=== PATIENT | male | born 1980 | race Hispanic/Latino ===

== ENCOUNTER 2017-07-11 12:43 | Emergency (ER) | payer SELFPAY ==
[2017-07-11 12:43] VITALS: BMI 26.2
[2017-07-11 12:52] VITALS: BP 151/88; PULSE 68; RESP 18; TEMP 97.1; O2SAT 98
[2017-07-11] MEDS ORDERED: Oxycodone/Acetaminophen 5/325 mg Tab PO STA (13:12)
--- NOTE | 2017-07-11 13:14 | ED PDOC ---
HPI: Dental Pain/Injury Time Seen by Provider: 07/11/17 12:59 Chief Complaint (Nursing): Dental Pain Chief Complaint (Provider): Dental pain x 2 hours History Per: Patient History/Exam Limitations: no limitations Onset/Duration Of Symptoms: Hrs Current Symptoms Are (Timing): Still Present Severity: Severe Pain Scale Rating Of: 10 Additional Complaint(s): Pt states he just broke the bottom left wisdom tooth at work. Pt states he took motrin but was in so much pain he came to the ER. PT takes oxycodone 30mg "sometimes" for knee pain. Pt has filled Rx for #120 tabs every month. No fever/ chills. Past Medical History Vital Signs: Last Vital Signs Temp 97.1 F L 07/11/17 12:50 Pulse 68 07/11/17 12:50 Resp 18 07/11/17 12:50 BP 151/88 H 07/11/17 12:50 Pulse Ox 98 07/11/17 12:50 - Medical History PMH: Fractures (right orbital, mandibal, nose), Migraine (head injury as a child ) Denies: Depression, Chronic Kidney Disease - Surgical History Surgical History: No Surg Hx - Family History Family History: States: No Known Family Hx - Home Medications Home Medications: Ambulatory Orders Medication Instructions Recorded Oxycodone HCl [Roxicodone] 30 mg PO TID #90 tab 09/14/15 Clindamycin [Cleocin] 300 mg PO Q6H #28 cap 04/01/16 Ibuprofen [Motrin Tab] 800 mg PO Q6H PRN #20 tab 07/11/17 Penicillin VK [Penicillin VK Tab] 500 mg PO BID 10 Days 07/11/17 - Allergies Allergies/Adverse Reactions: Allergies Allergy/AdvReac Type Severity Reaction Status Date / Time No Known Allergies Allergy Verified 03/30/16 16:23 Review of Systems ROS Statement: Except As Marked, All Systems Reviewed And Found Negative Constitutional: Negative for: Fever, Chills ENT: Positive for: Other (Dental pain ) Physical Exam - Reviewed Nursing Documentation Reviewed: Yes Vital Signs Reviewed: Yes - Physical Exam Appears: Positive for: Well, Non-toxic, No Acute Distress Head Exam: Positive for: ATRAUMATIC, NORMAL INSPECTION, NORMOCEPHALIC Skin: Positive for: Normal Color, Warm, DRY Eye Exam: Positive for: Normal appearance, Other ENT: Positive for: Normal ENT Inspection, Other (Dental decay lower right, no acute dental fracture seen ) Neck: Positive for: Normal, Painless ROM Cardiovascular/Chest: Positive for: Regular Rate, Rhythm Respiratory: Positive for: CNT, Normal Breath Sounds Back: Positive for: Normal Inspection Extremity: Positive for: Normal ROM. Negative for: Tenderness Neurologic/Psych: Positive for: Alert, Oriented - ECG O2 Sat by Pulse Oximetry: 98 Medical Decision Making Medical Decision Making: When offered percocet patient states "that isn't going to do anything for me". When patient told it was the strongest I would give in ER he said he would take it. Disposition - Clinical Impression Clinical Impression: Dental caries - Patient ED Disposition Is Patient to be Admitted: No Counseled Patient/Family Regarding: Diagnosis, Need For Followup - Disposition Disposition: Routine/Home Disposition Time: 13:16 Condition: GOOD Prescriptions: Ibuprofen [Motrin Tab] 800 mg PO Q6H PRN #20 tab PRN Reason: Pain Penicillin VK [Penicillin VK Tab] 500 mg PO BID 10 Days Instructions: Dental Caries (ED) Forms: [employer] (Fijian)
== END 2017-07-11 13:39 | disposition home or self-care (01) ==
LOC: H.ER 12:43
DX: K02.9 Dental caries, unspecified (principal)

== ENCOUNTER 2018-09-02 06:24 | Emergency (ER) | payer MEDICAID ==
[2018-09-02 06:25] VITALS: BMI 24.3
[2018-09-02] MEDS ORDERED: Sodium Chloride 0.9% 1,000 ML IV STA (07:19)
--- NOTE | 2018-09-02 07:53 | ED PDOC ---
HPI: Abdomen Time Seen by Provider: 09/02/18 07:11 Chief Complaint (Nursing): Abdominal Pain Chief Complaint (Provider): Abdominal Pain History Per: Patient History/Exam Limitations: no limitations Onset/Duration Of Symptoms: Days (x1 day ago), Worse Since (onset) Current Symptoms Are (Timing): Still Present Location Of Pain/Discomfort: RLQ Quality Of Discomfort: Sharp Associated Symptoms: Vomiting. denies: Fever, Diarrhea, Loss Of Appetite Additional Complaint(s): Demetri Arrieta is a 38 year old male with no past medical history, who presents to the emergency department complaining of having sharp right sided abdominal pain, associated with headaches and vomiting, onset x1 day ago. Patient states his pain has gotten worse since the onset. Patient denies hematuria, fever, diarrhea, or loss of appetite. He reports taking no medication for the pain. PMD: Candido Bryant Past Medical History Reviewed: Historical Data, Nursing Documentation, Vital Signs Vital Signs: Last Vital Signs Temp 98.6 F 09/02/18 07:12 Pulse 94 H 09/02/18 07:12 Resp 16 09/02/18 07:12 BP 125/63 09/02/18 07:12 Pulse Ox 97 09/02/18 07:12 - Medical History PMH: Fractures (right orbital, mandibal, nose), Migraine (head injury as a child) Denies: Depression, Chronic Kidney Disease - Surgical History Other surgeries: Knee surgeries bilaterally - Family History Family History: States: Unknown Family Hx - Home Medications Home Medications: Ambulatory Orders Medication Instructions Recorded Cephalexin [Keflex] 500 mg PO TID #21 capsule 06/21/18 traMADol [Ultram] 50 mg PO Q6 #9 tab 06/21/18 Ondansetron ODT [Zofran ODT] 4 mg PO Q6 PRN #10 odt 09/02/18 - Allergies Allergies/Adverse Reactions: Allergies Allergy/AdvReac Type Severity Reaction Status Date / Time No Known Allergies Allergy Verified 06/21/18 21:58 Review of Systems ROS Statement: Except As Marked, All Systems Reviewed And Found Negative Constitutional: Negative for: Fever Gastrointestinal: Positive for: Vomiting, Abdominal Pain. Negative for: Diarrhea Genitourinary Male: Negative for: Hematuria Neurological: Positive for: Headache Physical Exam - Reviewed Nursing Documentation Reviewed: Yes Vital Signs Reviewed: Yes - Physical Exam Appears: Positive for: Well, Non-toxic, No Acute Distress Head Exam: Positive for: ATRAUMATIC, NORMOCEPHALIC Skin: Positive for: Normal Color, Warm, Dry Eye Exam: Positive for: EOMI Neck: Positive for: Painless ROM Cardiovascular/Chest: Positive for: Regular Rate, Rhythm. Negative for: Murmur Respiratory: Positive for: Normal Breath Sounds. Negative for: Respiratory Distress Gastrointestinal/Abdominal: Positive for: Tenderness (RLQ, McBurney's point). Negative for: Guarding, Rebound Back: Positive for: Normal Inspection. Negative for: L CVA Tenderness, R CVA Tenderness, Vertebral Tenderness Extremity: Positive for: Normal ROM. Negative for: Tenderness, Pedal Edema, Deformity Neurologic/Psych: Positive for: Alert, Oriented (x3) - Laboratory Results Result Diagrams: 09/02/18 08:03 09/02/18 08:03 - ECG O2 Sat by Pulse Oximetry: 97 (RA) Pulse Ox Interpretation: Normal Medical Decision Making Medical Decision Making: Time:07:19 Impression: Appendicitis Initial Plan: --CMP --Lipase --CBC with differential --Urinalysis --Abd and pelvis CT with IV contrast Medications: --Toradol 15 mg IV --Sodium Chloride 1,000 ml IV labs reviewed WBC and LFTs normal Accession No. : [id number] Patient Name / ID : BORIS [id number] / [id number] Exam Date : 09/02/2018 09:17:56 ( Approved ) Study Comment : Sex / Age : M / [id number] Creator : Abimael Lugo MD Dictator : Abimael Lugo MD Database Administration Associate : Survey Worker : Abimael Lugo MD Approver2 : Report Date : 09/02/2018 10:14:29 My Comment : Date of service: 09/02/2018 PROCEDURE: CT Abdomen and Pelvis with contrast HISTORY: RLQ pain vomiting COMPARISON: None. TECHNIQUE: Following the intravenous administration of iodinated contrast material, a CT examination of the abdomen and pelvis performed from the domes of the diaphragms to the symphysis pubis with reformatted datasets provided in axial, sagittal and coronal planes. Oral contrast was not administered as per referring physician request. Coronal and sagittal reformats were generated. contrast dose: Omnipaque 300, 100 cc Radiation dose: Total exam DLP = 470.81 mGy-cm. This CT exam was performed using one or more of the following dose reduction tamiko hniques: Automated exposure control, adjustment of the mA and/or kV according to patient size, and/or use of iterative reconstruction technique. FINDINGS: LOWER THORAX: Trace bibasilar dependent atelectasis identified. LIVER: Unremarkable. No gross lesion or ductal dilatation. GALLBLADDER AND BILE DUCTS: Unremarkable. PANCREAS: Unremarkable. No gross lesion or ductal dilatation. SPLEEN: Unremarkable. ADRENALS: Unremarkable. No mass. KIDNEYS AND URETERS: Unremarkable. No hydronephrosis. No solid mass. VASCULATURE: Unremarkable. No aortic aneurysm. BOWEL: The stomach is distended with retained food and fluid limiting its evaluation. Evaluation of the gastrointestinal tract is limited due to the lack of oral contrast administration. Prominent retained fecal material is seen throughout the majority of large bowel suggestive of constipation. APPENDIX: Normal appendix. PERITONEUM: Unremarkable. No free fluid. No free air. LYMPH NODES: Unremarkable. No enlarged lymph nodes. BLADDER: Unremarkable. REPRODUCTIVE: Unremarkable. BONES: No acute fracture. OTHER FINDINGS: None. IMPRESSION: Normal appearing appendix. No measure edema, ascites or free intrarenal gas collection evident. Retained fecal material throughout the large bowel suggestive of constipation. ADDENDUM: On further review of the exam, small central mesenteric lymph nodes are identified with 2 medial to the cecum in a pattern may reflect mesenteric adenitis given several shotty lymph nodes in the central mesentery in concert with that finding. Further, a few thickened proximal small bowel loops in the left upper quadrant which may reflect limited enteritis as well. Findings discussed Dr. Mcdonald with written down and read back verification 09/02/2018 11:55 a.m.. [ Addendum Report Added by Abimael Lugo MD at 09/02/2018 11:55:45 ] D/w Dr Briceño radiologist, appendix appears normal\ Patient admitted to significant hunger and tolerated PO Re-eval patient abdomen mild tenderness LLQ and RLQ, no guarding or rebound. DC with specific instructions for return to ER for return, any worse or new pain. Scribe Attestation: Documented by Neftali Neves, acting as a scribe for Poncho Mcdonald III, DO. Provider Scribe Attestation: All medical record entries made by the Scribe were at my direction and personally dictated by me. I have reviewed the chart and agree that the record accurately reflects my personal performance of the history, physical exam, medical decision making, and the department course for this patient. I have also personally directed, reviewed, and agree with the discharge instructions and disposition. Disposition - Clinical Impression Clinical Impression: Abdominal pain, Vomiting - Patient ED Disposition Is Patient to be Admitted: No Counseled Patient/Family Regarding: Studies Performed, Diagnosis - Disposition Referrals: Jarrell Cheatham MD [Staff Provider] - Disposition: Routine/Home Disposition Time: 14:01 Condition: STABLE Additional Instructions: Drink plenty of fluids, avoid alcohol for one week, return to ER for any worse or new symptoms, pain, fever or any concern. Use zofran ODT every 4-6hrs as needed for nausea. Prescriptions: Ondansetron ODT [Zofran ODT] 4 mg PO Q6 PRN #10 odt PRN Reason: Nausea/Vomiting Instructions: Acute Abdomen (Belly Pain), Nausea and Vomiting, Adult (DC) Forms: [employer] (Icelandic)
[2018-09-02 08:16] LABS: BASO # 0.1 K/uL (0.0-0.2); EOS # 0.1 K/uL (0.0-0.7); HEMOGLOBIN 13.3 g/dL (12.0-18.0); LYMPH # 2.4 K/uL (1.0-4.3); LYMPH % 24.1 % (20.0-40.0); MEAN CELL VOLUME 92.8 fl (80.0-94.0); MEAN CORPUSCULAR HEMOGLOBIN 31.1 pg (27.0-31.0); MEAN CORPUSCULAR HGB CONC 33.6 g/dL (33.0-37.0); MEAN PLATELET VOLUME 8.5 fl (7.2-11.7); MONO # 0.9 K/uL (0.0-0.8); MONO % 9.4 % (0.0-10.0); NEUT # 6.4 K/uL (1.8-7.0); NEUT % 64.5 % (50.0-75.0); RBC 4.26 Mil/uL (4.40-5.90); RED CELL DISTRIBUTION WIDTH 13.9 % (11.5-14.5); WHITE BLOOD COUNT 9.9 K/uL (4.8-10.8)
[2018-09-02 08:42] LABS: ALB/GLOB RATIO 1.3 (1.0-2.1); ALBUMIN 4.1 g/dL (3.5-5.0); ALT/SGPT 25 U/L (21-72); AST/SGOT 26 U/L (17-59); BLOOD UREA NITROGEN 26 mg/dl (9-20); CALCIUM 9.2 mg/dL (8.4-10.2); GFR NON-AFRICAN AMERICAN > 60; LIPASE 37 U/L (23-300)
[2018-09-02] MEDS ORDERED: Iohexol 300 100 ML IJ ONE (09:06)
[2018-09-02] MEDS ORDERED: Sodium Chloride 0.9% 50 ML IV ONE (09:06)
[2018-09-02 10:05] LABS: SQUAMOUS EPITHIAL < 1 /hpf (0-5); URINE BILIRUBIN NEGATIVE (NEGATIVE); URINE BLOOD NEGATIVE (NEGATIVE); URINE CLARITY CLEAR (Clear); URINE COLOR YELLOW (YELLOW); URINE GLUCOSE (UA) NEG (Normal); URINE LEUKOCYTE ESTERASE NEG Leu/uL (Negative); URINE PROTEIN NEGATIVE (NEGATIVE); URINE UROBILINOGEN 0.2-1.0 mg/dL (0.2-1.0)
--- NOTE | 2018-09-02 10:18 | CT ---
Date of service: 09/02/2018 PROCEDURE: CT Abdomen and Pelvis with contrast HISTORY: RLQ pain vomiting COMPARISON: None. TECHNIQUE: Following the intravenous administration of iodinated contrast material, a CT examination of the abdomen and pelvis performed from the domes of the diaphragms to the symphysis pubis with reformatted datasets provided in axial, sagittal and coronal planes. Oral contrast was not administered as per referring physician request. Coronal and sagittal reformats were generated. contrast dose: Omnipaque 300, 100 cc Radiation dose: Total exam DLP = 470.81 mGy-cm. This CT exam was performed using one or more of the following dose reduction techniques: Automated exposure control, adjustment of the mA and/or kV according to patient size, and/or use of iterative reconstruction technique. FINDINGS: LOWER THORAX: Trace bibasilar dependent atelectasis identified. LIVER: Unremarkable. No gross lesion or ductal dilatation. GALLBLADDER AND BILE DUCTS: Unremarkable. PANCREAS: Unremarkable. No gross lesion or ductal dilatation. SPLEEN: Unremarkable. ADRENALS: Unremarkable. No mass. KIDNEYS AND URETERS: Unremarkable. No hydronephrosis. No solid mass. VASCULATURE: Unremarkable. No aortic aneurysm. BOWEL: The stomach is distended with retained food and fluid limiting its evaluation. Evaluation of the gastrointestinal tract is limited due to the lack of oral contrast administration. Prominent retained fecal material is seen throughout the majority of large bowel suggestive of constipation. APPENDIX: Normal appendix. PERITONEUM: Unremarkable. No free fluid. No free air. LYMPH NODES: Unremarkable. No enlarged lymph nodes. BLADDER: Unremarkable. REPRODUCTIVE: Unremarkable. BONES: No acute fracture. OTHER FINDINGS: None. IMPRESSION: Normal appearing appendix. No measure edema, ascites or free intrarenal gas collection evident. Retained fecal material throughout the large bowel suggestive of constipation.
[2018-09-02 15:02] VITALS: RESP 18
[2018-09-02 15:04] VITALS: BP 125/67; PULSE 69; TEMP 97.8
[2018-09-02 15:59] VITALS: O2SAT 97
== END 2018-09-02 15:02 | disposition home or self-care (01) ==
LOC: H.ER 06:24
DX: R10.31 Right lower quadrant pain (principal); R11.10 Vomiting, unspecified
CPT/HCPCS: 74177; 80053; 81003; 83690; 85025; 96374; 96375; 99283; J1885; J2405; J7030; Q9967